=== PATIENT | female | born 1955 | race Caucasian/White ===

== ENCOUNTER → 2022-01-28 | Outpatient (CLI) | payer MEDICARE ==
[~2022-01-28] MED LIST: B12; CALCIUM; LORATADINE10 MG PO; PANTOPRAZOLE SO20 MG PO; TRIAMTERENE-HCTZ1 EA PO; VITAMIN C1000 MG PO; VITAMIN D; Z.0.ALENDRONATE SOD7 PO; Z.0.LEVOTHYROXINE50 PO; Z.0.SIMVASTATIN40 MG PO
== END ==
LOC: CT 14:38
PROVIDERS: ATTEND Specialist
DX: S42.221A 2-part displaced fracture of surgical neck of right humerus, initial encounter for closed fracture (principal)

== ENCOUNTER 2022-01-31 07:06 | Inpatient (IN) | payer MEDICARE, OTHER ==
[2022-01-30 11:51] LABS: BASOPHILS % 0.3 % (0.0-1.0); EOSINOPHILS % 0.3 % (0.0-6.0); HEMATOCRIT 35.1 % (34.2-44.1); HEMOGLOBIN 10.8 g/dL (12.0-16.0); LYMPHOCYTES # (AUTO) 0.7 (1.0-3.2); LYMPHOCYTES % 7.2 % (18.0-39.1); MEAN CORPUSCULAR HEMOGLOBIN 28.6 pg (28-32); MEAN CORPUSCULAR HGB CONC 30.8 g/dL (31-35); MEAN CORPUSCULAR VOLUME 93.1 fL (81-99); MONOCYTES # (AUTO) 0.8 (0.2-0.8); MONOCYTES % 8.7 % (4.4-11.3); NEUTROPHILS # (AUTO) 7.6 (2.1-6.9); PLATELET COUNT 521 x10e3/uL (140-360); RED BLOOD COUNT 3.77 x10e6/uL (3.6-5.1); RED CELL DISTRIBUTION WIDTH 13.6 % (11.7-14.4)
[2022-01-30 12:07] LABS: ANION GAP 17.1 mmol/L (8-16); CALCIUM 8.9 mg/dL (8.4-10.2); CREATININE, SERUM 0.8 mg/dL (0.57-1.11); POTASSIUM 4.1 mmol/L (3.5-5.1)
[~2022-01-31] VITALS: Ht 137.2 cm; Wt 36.0 kg
[~2022-01-31 07:06] MED LIST changes: +CLINDAMYCIN PHOS 900MG/ 50ML 50 ML IV ONE
[2022-01-31] MEDS ORDERED: BUPIVACAINE 0.25% 30ML SDV ONE (08:14)
[2022-01-31 11:34] LABS: HEMATOCRIT 26.5 % (34.2-44.1); HEMOGLOBIN 8.6 g/dL (12.0-16.0)
[2022-01-31] MEDS ORDERED: DEXAMETHASONE SOD PHOS INJ 4 MG/ML SDV ONE (12:17)
[2022-01-31] MEDS ORDERED: POVIDONE IODINE 0.05% 0.05 % ML PO ONE (12:17)
[2022-01-31] MEDS ORDERED: KETOROLAC TROMETHAMINE 30 MG/ML VIAL ONE (12:17)
[2022-01-31] MEDS ORDERED: LIDOCAINE HCL 2% LOCAL INJ 5 ML SDV VIAL INJ ONE (12:17)
[2022-01-31] MEDS ORDERED: SEVOFLURANE INHAL SOLN 250 ML PEN BTL ONE (12:17)
[2022-01-31] MEDS ORDERED: GLYCOPYRROLATE INJ 0.2 MG/ML VIAL ONE (12:17)
[2022-01-31] MEDS ORDERED: PROPOFOL IV EMULSION 10 MG/ML 20 ML VIAL ONE (12:17)
[2022-01-31] MEDS ORDERED: ROCURONIUM BROMIDE 10 MG/ML 5ML VIAL IV ONE (12:17)
[2022-01-31] MEDS ORDERED: EPHEDRINE SULFATE INJ 50 MG/ML VIAL ONE (12:17)
[2022-01-31] MEDS ORDERED: NEOSTIGMINE 1 MG/ML 10ML VIAL ONE (12:17)
[2022-01-31] MEDS ORDERED: ONDANSETRON HCL INJ 2MG/ML 2ML 2 MG/ML VIAL ONE (12:17)
[2022-01-31] MEDS ORDERED: PHENYLEPHRINE HCL 1% 10 MG/ML VIAL ONE (12:17)
[2022-01-31] MEDS ORDERED: NALOXONE HCL INJ 0.4 MG/ML AMP IV PRN (12:30)
[2022-01-31] MEDS ORDERED: ONDANSETRON HCL INJ 2MG/ML 2ML 2 MG/ML VIAL IV PRN (12:30)
[2022-01-31] MEDS ORDERED: FENTANYL CITRATE/PF 100MCG/2 ML INJ ONE (13:44)
[2022-01-31] MEDS ORDERED: MIDAZOLAM HCL 2 MG/2 ML VIAL ONE (13:44)
[2022-01-31] MEDS: HYDROMORPHONE 0.2MG/ML-SOD CHL 30ML PCA SYRINGE IV PRN ×2 (13:50→19:05)
[2022-01-31] MEDS ORDERED: ROPIVACAINE 0.5% 5 MG/ML 30 ML SDV ONE (15:06)
[2022-01-31 16:02] VITALS: BP 103/65
[2022-01-31 18:48] VITALS: BP 103/65
[2022-01-31 18:54] VITALS: BP 103/65
[2022-01-31] MEDS: CLINDAMYCIN PHOS 900MG/ 50ML 50 ML IV SCH (19:12)
[2022-01-31] MEDS: SODIUM CHLORIDE 0.9% 1000ML 1,000 ML IV SCH (19:12)
[2022-01-31] MEDS: ACETAMINOPHEN 1000 MG/100 ML IV SCH ×2 (19:13→20:53)
[2022-01-31 20:00] VITALS: BP 92/61
[2022-01-31 21:00] VITALS: BP 92/61
[2022-02-01] MEDS: CLINDAMYCIN PHOS 900MG/ 50ML 50 ML IV SCH ×3 (00:24→16:05)
[2022-02-01] MEDS: ACETAMINOPHEN 1000 MG/100 ML IV SCH ×3 (01:00→16:00)
[2022-02-01 01:17] VITALS: BP 103/58
[2022-02-01 05:24] VITALS: BP 86/58
[2022-02-01 06:50] LABS: HEMATOCRIT 22.3 % (34.2-44.1); HEMOGLOBIN 7.2 g/dL (12.0-16.0)
[2022-02-01 07:50] VITALS: BP 91/53
[2022-02-01 08:26] VITALS: BP 91/53
[2022-02-01] MEDS ORDERED: SODIUM CHLORIDE 0.9% 250ML 250 ML IV ONE (11:15)
[2022-02-01] MEDS: SODIUM CHLORIDE 0.9% 1000ML 1,000 ML IV SCH ×2 (11:18→21:39)
[2022-02-01 11:34] VITALS: BP 92/60
[2022-02-01] MEDS ORDERED: DOCUSATE SODIUM 100 MG CAP PO PRN (17:45)
[2022-02-01] MEDS ORDERED: ACETAMINOPHEN 325 MG TAB PO PRN (17:45)
[2022-02-01 20:00] VITALS: BP 115/59
[2022-02-01] MEDS: OYST-CAL-D 500MG TABLET PO SCH (21:35)
[2022-02-02] VITALS (7 sets, daily range): BP systolic 101–154; BP diastolic 57–75
[2022-02-02] MEDS: CLINDAMYCIN PHOS 900MG/ 50ML 50 ML IV SCH ×4 (00:04→23:28)
[2022-02-02] MEDS: LEVOTHYROXINE SODIUM 50 MCG TAB PO SCH (05:33)
[2022-02-02 06:12] LABS: BASOPHILS % 0.2 % (0.0-1.0); HEMATOCRIT 28.9 % (34.2-44.1); HEMOGLOBIN 9.5 g/dL (12.0-16.0); LYMPHOCYTES # (AUTO) 0.7 (1.0-3.2); LYMPHOCYTES % 8.2 % (18.0-39.1); MEAN CORPUSCULAR HEMOGLOBIN 29.6 pg (28-32); MEAN CORPUSCULAR HGB CONC 32.9 g/dL (31-35); MONOCYTES # (AUTO) 0.5 (0.2-0.8); MONOCYTES % 5.5 % (4.4-11.3); NEUTROPHILS # (AUTO) 7.7 (2.1-6.9); NEUTROPHILS % 85.7 % (38.7-80.0); PLATELET COUNT 366 x10e3/uL (140-360); RED BLOOD COUNT 3.21 x10e6/uL (3.6-5.1); RED CELL DISTRIBUTION WIDTH 14.2 % (11.7-14.4)
[2022-02-02] MEDS: SIMVASTATIN 40 MG TAB PO SCH (09:38)
[2022-02-02] MEDS: OYST-CAL-D 500MG TABLET PO SCH ×3 (09:38→20:12)
[2022-02-02] MEDS: LORATADINE 10 MG TAB PO SCH (09:39)
[2022-02-02] MEDS: SODIUM CHLORIDE 0.9% 1000ML 1,000 ML IV SCH ×2 (09:40→20:12)
[2022-02-02] MEDS ORDERED: ENOXAPARIN SOD INJ 40 MG/0.4 ML SYR SC SCH (17:00)
[2022-02-03] VITALS (8 sets, daily range): BP systolic 83–129; BP diastolic 60–84
[2022-02-03] MEDS: LEVOTHYROXINE SODIUM 50 MCG TAB PO SCH (05:30)
[2022-02-03 07:16] LABS: HEMATOCRIT 31.4 % (34.2-44.1); HEMOGLOBIN 10.5 g/dL (12.0-16.0)
[2022-02-03 07:39] LABS: ANION GAP 13.9 mmol/L (8-16); CALCIUM 8.2 mg/dL (8.4-10.2); CREATININE, SERUM 0.62 mg/dL (0.57-1.11); POTASSIUM 3.9 mmol/L (3.5-5.1)
[2022-02-03] MEDS: OYST-CAL-D 500MG TABLET PO SCH ×3 (10:09→21:11)
[2022-02-03] MEDS: LORATADINE 10 MG TAB PO SCH (10:09)
[2022-02-03] MEDS: CLINDAMYCIN PHOS 900MG/ 50ML 50 ML IV SCH ×3 (10:09→21:11)
[2022-02-03] MEDS: SIMVASTATIN 40 MG TAB PO SCH (10:09)
[2022-02-03] MEDS: SODIUM CHLORIDE 0.9% 1000ML 1,000 ML IV SCH ×2 (10:40→17:03)
[2022-02-04 01:19] VITALS: BP 92/76
[2022-02-04 04:00] VITALS: BP 117/72
[2022-02-04] MEDS: LEVOTHYROXINE SODIUM 50 MCG TAB PO SCH (05:20)
[2022-02-04] MEDS: CLINDAMYCIN PHOS 900MG/ 50ML 50 ML IV SCH ×2 (08:12→16:13)
[2022-02-04] MEDS: LORATADINE 10 MG TAB PO SCH (08:12)
[2022-02-04] MEDS: OYST-CAL-D 500MG TABLET PO SCH ×2 (08:12→14:35)
[2022-02-04] MEDS: SIMVASTATIN 40 MG TAB PO SCH (08:12)
[2022-02-04 08:45] VITALS: BP 117/72
[2022-02-04 08:58] VITALS: BP 102/69
[2022-02-04] MEDS: SODIUM CHLORIDE 0.9% 1000ML 1,000 ML IV SCH (11:05)
[2022-02-04 11:47] VITALS: BP 91/70
[2022-02-04] MEDS ORDERED: HYDROCODONE/APAP 5MG-325MG TAB PO PRN ×2 (13:30)
[2022-02-04] MEDS ORDERED: ONDANSETRON HCL 4 MG ORAL DISINTEGRATING TAB PO PRN (14:30)
[2022-02-04] MEDS ORDERED: COLLAGENASE 5 GM TUBE TP SCH (15:30)
[2022-02-04 16:02] VITALS: BP 115/78
== END 2022-02-04 17:18 | DRG 493 ==
LOC: OR 07:06 → PACU V 12:53 → MED/SURG2 15:43 → OBSVTOIN 02-01 11:15
PROVIDERS: ADMIT Specialist; ATTEND Specialist
PROC: 0PUF0KZ Supplement Right Humeral Shaft with Nonautologous Tissue Substitute, Open Approach (ICD-10-PCS; 2022-01-31)
PROC: 0PSF04Z Reposition Right Humeral Shaft with Internal Fixation Device, Open Approach (ICD-10-PCS; principal; 2022-01-31 08:45)
PROC: 30233N1 Transfusion of Nonautologous Red Blood Cells into Peripheral Vein, Percutaneous Approach (ICD-10-PCS; 2022-02-01)
DX: S42.231A 3-part fracture of surgical neck of right humerus, initial encounter for closed fracture (principal); D62 Acute posthemorrhagic anemia; Z68.1 Body mass index [BMI] 19.9 or less, adult; E03.9 Hypothyroidism, unspecified; E78.5 Hyperlipidemia, unspecified; E78.00 Pure hypercholesterolemia, unspecified; R33.8 Other retention of urine; R73.03 Prediabetes; W18.30XA Fall on same level, unspecified, initial encounter; Y92.009 Unspecified place in unspecified non-institutional (private) residence as the place of occurrence of the external cause; Z88.1 Allergy status to other antibiotic agents; Z88.0 Allergy status to penicillin; Z88.2 Allergy status to sulfonamides; Z88.8 Allergy status to other drugs, medicaments and biological substances; Z20.822 Contact with and (suspected) exposure to COVID-19
CPT/HCPCS: 0223U; 36415; 71046; 76000; 80048; 85014; 85018; 85025; 86850; 86900; 86920; 93005; 94799; 97139; 99251; C1713; C1762; G0378; J1100; J1885; J2001; J2250; J2370; J2405; J2710; J2795; J3010; J7030; P9016

== ENCOUNTER → 2022-03-26 | Outpatient (CLI) | payer MEDICARE, OTHER ==
[~2022-03-26] MED LIST changes: -CLINDAMYCIN PHOS 900MG/ 50ML 50 ML IV ONE; +HYDROCHLOROTHIA25 MG PO
[2022-03-26 12:25] LABS: BASOPHILS # (AUTO) 0.1 (0.0-0.1); BASOPHILS % 0.8 % (0.0-1.0); EOSINOPHILS # (AUTO) 0.1 (0.0-0.4); EOSINOPHILS % 0.9 % (0.0-6.0); HEMATOCRIT 35.5 % (34.2-44.1); HEMOGLOBIN 10.9 g/dL (12.0-16.0); LYMPHOCYTES # (AUTO) 1.1 (1.0-3.2); LYMPHOCYTES % 17.6 % (18.0-39.1); MEAN CORPUSCULAR HEMOGLOBIN 28.3 pg (28-32); MEAN CORPUSCULAR HGB CONC 30.7 g/dL (31-35); MEAN CORPUSCULAR VOLUME 92.2 fL (81-99); MONOCYTES # (AUTO) 0.5 (0.2-0.8); MONOCYTES % 8.3 % (4.4-11.3); NEUTROPHILS # (AUTO) 4.7 (2.1-6.9); NEUTROPHILS % 72.1 % (38.7-80.0); PLATELET COUNT 451 x10e3/uL (140-360); RED BLOOD COUNT 3.85 x10e6/uL (3.6-5.1); RED CELL DISTRIBUTION WIDTH 13.8 % (11.7-14.4)
[2022-03-26 12:42] LABS: ANION GAP 17.4 mmol/L (8-16); BLOOD UREA NITROGEN 13 mg/dL (7-26); BUN/CREATININE RATIO 21 (6-25); CALCIUM 9.6 mg/dL (8.4-10.2); CARBON DIOXIDE 27 mmol/L (22-29); CHLORIDE 99 mmol/L (98-107); CREATININE, SERUM 0.62 mg/dL (0.57-1.11); GLUCOSE 96 mg/dL (74-118); POTASSIUM 4.4 mmol/L (3.5-5.1); SODIUM 139 mmol/L (136-145)
== END | disposition home or self-care (01) ==
LOC: RAD 07:30 → EDSTATUS 04-03 09:30
PROVIDERS: ATTEND Specialist
DX: L08.9 Local infection of the skin and subcutaneous tissue, unspecified (principal); T84.9XXA Unspecified complication of internal orthopedic prosthetic device, implant and graft, initial encounter; E78.00 Pure hypercholesterolemia, unspecified; Y83.9 Surgical procedure, unspecified as the cause of abnormal reaction of the patient, or of later complication, without mention of misadventure at the time of the procedure; Z53.9 Procedure and treatment not carried out, unspecified reason; Z88.0 Allergy status to penicillin; Z88.2 Allergy status to sulfonamides; Z88.1 Allergy status to other antibiotic agents; Z91.041 Radiographic dye allergy status
CPT/HCPCS: 0223U; 36415; 80048; 85025

== ENCOUNTER 2022-04-02 13:46 | Inpatient (IN) | payer MEDICARE, OTHER ==
[~2022-04-02] VITALS: Ht 137.2 cm; Wt 35.8 kg
[2022-04-02] MEDS ORDERED: ONDANSETRON HCL INJ 2MG/ML 2ML 2 MG/ML VIAL IV PRN (14:45)
[2022-04-02 14:50] LABS: BASOPHILS # (AUTO) 0.1 (0.0-0.1); BASOPHILS % 0.6 % (0.0-1.0); EOSINOPHILS # (AUTO) 0.1 (0.0-0.4); EOSINOPHILS % 0.6 % (0.0-6.0); HEMATOCRIT 37.7 % (34.2-44.1); LYMPHOCYTES # (AUTO) 1.2 (1.0-3.2); LYMPHOCYTES % 13.8 % (18.0-39.1); MEAN CORPUSCULAR HEMOGLOBIN 29.1 pg (28-32); MEAN CORPUSCULAR HGB CONC 31.8 g/dL (31-35); MEAN CORPUSCULAR VOLUME 91.3 fL (81-99); MONOCYTES # (AUTO) 0.5 (0.2-0.8); MONOCYTES % 6.4 % (4.4-11.3); NEUTROPHILS # (AUTO) 6.6 (2.1-6.9); NEUTROPHILS % 78.4 % (38.7-80.0); PLATELET COUNT 472 x10e3/uL (140-360); RED BLOOD COUNT 4.13 x10e6/uL (3.6-5.1); RED CELL DISTRIBUTION WIDTH 13.3 % (11.7-14.4)
[2022-04-02 15:15] LABS: ALANINE AMINOTRANSFERASE 47 IU/L (0-55); ALBUMIN 3.8 g/dL (3.5-5.0); ALKALINE PHOSPHATASE 429 IU/L (40-150); ANION GAP 17.2 mmol/L (8-16); BLOOD UREA NITROGEN 12 mg/dL (7-26); BUN/CREATININE RATIO 17 (6-25); CARBON DIOXIDE 27 mmol/L (22-29); CHLORIDE 97 mmol/L (98-107); GLUCOSE 97 mg/dL (74-118); POTASSIUM 4.2 mmol/L (3.5-5.1); SODIUM 137 mmol/L (136-145)
[2022-04-02 17:10] VITALS: BP 109/75
[2022-04-02] MEDS ORDERED: CLINDAMYCIN PHOS 900MG/ 50ML 50 ML IV ONE (17:30)
[2022-04-02 17:40] VITALS: BP 109/75
[2022-04-02 20:00] VITALS: BP 82/53
[2022-04-02 21:00] VITALS: BP 82/53
[2022-04-02] MEDS: Vancomycin IV 500 MG in SODIUM CHLORIDE 0.9% 100 ML IV SCH (21:06)
[2022-04-02 22:38] VITALS: BP 90/58
[2022-04-03] VITALS (9 sets, daily range): BP systolic 84–102; BP diastolic 56–65
[2022-04-03] MEDS ORDERED: Vancomycin IV 500 MG ONE (09:11)
[2022-04-03] MEDS ORDERED: SODIUM CHLORIDE 0.9% 100 ML ONE (09:11)
[2022-04-03] MEDS ORDERED: SUGAMMADEX SODIUM 200 MG/2 ML VIAL IV ONE (11:00)
[2022-04-03] MEDS ORDERED: HYDROMORPHONE 0.2MG/ML-SOD CHL 30ML PCA SYRINGE IV PRN (11:15)
[2022-04-03] MEDS ORDERED: SODIUM CHLORIDE 0.9% 1000ML 1,000 ML IV SCH ×3 (11:15)
[2022-04-03] MEDS ORDERED: ONDANSETRON HCL INJ 2MG/ML 2ML 2 MG/ML VIAL IV PRN (11:15)
[2022-04-03] MEDS ORDERED: NALOXONE HCL INJ 0.4 MG/ML AMP IV PRN (11:15)
[2022-04-03] MEDS ORDERED: ONDANSETRON HCL INJ 2MG/ML 2ML 2 MG/ML VIAL ONE (12:06)
[2022-04-03] MEDS ORDERED: POVIDONE IODINE 0.05% 0.05 % ML PO ONE (12:06)
[2022-04-03] MEDS ORDERED: SEVOFLURANE INHAL SOLN 250 ML PEN BTL ONE (12:06)
[2022-04-03] MEDS ORDERED: LIDOCAINE HCL 2% LOCAL INJ 5 ML SDV VIAL INJ ONE (12:06)
[2022-04-03] MEDS ORDERED: ROCURONIUM BROMIDE 10 MG/ML 5ML VIAL IV ONE (12:06)
[2022-04-03] MEDS ORDERED: PROPOFOL IV EMULSION 10 MG/ML 20 ML VIAL ONE (12:06)
[2022-04-03] MEDS ORDERED: FENTANYL CITRATE/PF 100MCG/2 ML INJ ONE ×2 (12:10→13:44)
[2022-04-03] MEDS: Vancomycin IV 500 MG in SODIUM CHLORIDE 0.9% 100 ML IV SCH ×2 (12:34→21:48)
[2022-04-03] MEDS ORDERED: MIDAZOLAM HCL 2 MG/2 ML VIAL ONE (13:44)
[2022-04-03] MEDS ORDERED: ACETAMINOPHEN 1000 MG/100 ML IV PRN (14:00)
[2022-04-03] MEDS: HYDROCODONE/APAP 5MG-325MG TAB PO PRN (14:04)
[2022-04-03] MEDS: SIMVASTATIN 40 MG TAB PO SCH (20:26)
[2022-04-04] VITALS (8 sets, daily range): BP systolic 90–126; BP diastolic 51–68
[2022-04-04] MEDS: LEVOTHYROXINE SODIUM 50 MCG TAB PO SCH (05:17)
[2022-04-04 06:21] LABS: ALBUMIN/GLOBULIN RATIO 0.8 (0.8-2.0); ANION GAP 12.3 mmol/L (8-16); CALCIUM 7.2 mg/dL (8.4-10.2); CREATININE, SERUM 0.58 mg/dL (0.57-1.11); POTASSIUM 3.3 mmol/L (3.5-5.1)
[2022-04-04 06:35] LABS: BASOPHILS % 0.5 % (0.0-1.0); EOSINOPHILS % 0.4 % (0.0-6.0); HEMATOCRIT 26.6 % (34.2-44.1); HEMOGLOBIN 8.2 g/dL (12.0-16.0); LYMPHOCYTES % 13.8 % (18.0-39.1); MEAN CORPUSCULAR HEMOGLOBIN 28.9 pg (28-32); MEAN CORPUSCULAR HGB CONC 30.8 g/dL (31-35); MEAN CORPUSCULAR VOLUME 93.7 fL (81-99); MONOCYTES # (AUTO) 0.7 (0.2-0.8); MONOCYTES % 9.9 % (4.4-11.3); NEUTROPHILS # (AUTO) 5.5 (2.1-6.9); NEUTROPHILS % 75.1 % (38.7-80.0); PLATELET COUNT 322 x10e3/uL (140-360); RED BLOOD COUNT 2.84 x10e6/uL (3.6-5.1); RED CELL DISTRIBUTION WIDTH 13.6 % (11.7-14.4)
[2022-04-04] MEDS: HYDROCODONE/APAP 5MG-325MG TAB PO PRN (08:36)
[2022-04-04] MEDS: HYDROCHLOROTHIAZIDE 25 MG TAB PO SCH (08:36)
[2022-04-04] MEDS: LORATADINE 10 MG TAB PO SCH (08:36)
[2022-04-04] MEDS ORDERED: POTASSIUM CHLORIDE 20 MEQ TAB CR PO ONE (09:15)
[2022-04-04] MEDS ORDERED: SODIUM CHLORIDE 0.9% IV SCH ×2 (10:15→21:00)
[2022-04-04] MEDS ORDERED: VANCOMYCIN IV SCH ×2 (10:15→21:00)
[2022-04-04] MEDS: Vancomycin IV 500 MG in SODIUM CHLORIDE 0.9% 100 ML IV SCH ×2 (11:31→22:25)
[2022-04-04] MEDS: CEFTRIAXONE 2 GM in SODIUM CHLORIDE 0.9% 100 ML IV SCH (16:52)
[2022-04-04] MEDS: SIMVASTATIN 40 MG TAB PO SCH (20:55)
[2022-04-05] VITALS (8 sets, daily range): BP systolic 92–106; BP diastolic 53–64
[2022-04-05] MEDS: LEVOTHYROXINE SODIUM 50 MCG TAB PO SCH (05:22)
[2022-04-05 06:17] LABS: HEMATOCRIT 25.4 % (34.2-44.1); HEMOGLOBIN 8.2 g/dL (12.0-16.0)
[2022-04-05] MEDS: LORATADINE 10 MG TAB PO SCH (09:22)
[2022-04-05] MEDS: HYDROCHLOROTHIAZIDE 25 MG TAB PO SCH (09:22)
[2022-04-05] MEDS: Vancomycin IV 500 MG in SODIUM CHLORIDE 0.9% 100 ML IV SCH ×2 (11:00→20:47)
[2022-04-05] MEDS: CEFTRIAXONE 2 GM in SODIUM CHLORIDE 0.9% 100 ML IV SCH (17:21)
[2022-04-05] MEDS: HYDROCODONE/APAP 5MG-325MG TAB PO PRN (20:46)
[2022-04-05] MEDS: SIMVASTATIN 40 MG TAB PO SCH (20:46)
[2022-04-06] VITALS (8 sets, daily range): BP systolic 81–108; BP diastolic 47–67
[2022-04-06] MEDS: LEVOTHYROXINE SODIUM 50 MCG TAB PO SCH (05:53)
[2022-04-06] MEDS: HYDROCHLOROTHIAZIDE 25 MG TAB PO SCH (09:00)
[2022-04-06] MEDS: HYDROCODONE/APAP 5MG-325MG TAB PO PRN (09:29)
[2022-04-06] MEDS: LORATADINE 10 MG TAB PO SCH (09:29)
[2022-04-06] MEDS: Vancomycin IV 500 MG in SODIUM CHLORIDE 0.9% 100 ML IV SCH ×2 (12:12→22:56)
[2022-04-06] MEDS: CEFTRIAXONE 2 GM in SODIUM CHLORIDE 0.9% 100 ML IV SCH (17:06)
[2022-04-06] MEDS: SIMVASTATIN 40 MG TAB PO SCH (20:27)
[2022-04-06] MEDS: GUAIFENESIN 200 MG/10 ML UDC PO PRN (22:56)
[2022-04-07] VITALS (8 sets, daily range): BP systolic 89–95; BP diastolic 55–67
[2022-04-07] MEDS: LEVOTHYROXINE SODIUM 50 MCG TAB PO SCH (05:19)
[2022-04-07] MEDS: LORATADINE 10 MG TAB PO SCH (08:39)
[2022-04-07] MEDS: HYDROCHLOROTHIAZIDE 25 MG TAB PO SCH (08:40)
[2022-04-07] MEDS: Vancomycin IV 500 MG in SODIUM CHLORIDE 0.9% 100 ML IV SCH ×2 (10:47→23:55)
[2022-04-07] MEDS: CEFTRIAXONE 2 GM in SODIUM CHLORIDE 0.9% 100 ML IV SCH (16:03)
[2022-04-07] MEDS: SIMVASTATIN 40 MG TAB PO SCH (21:05)
[2022-04-07] MEDS: HYDROCODONE/APAP 5MG-325MG TAB PO PRN (21:06)
[2022-04-07] MEDS: GUAIFENESIN 200 MG/10 ML UDC PO PRN (21:06)
[2022-04-08] VITALS (9 sets, daily range): BP systolic 92–136; BP diastolic 56–67
[2022-04-08] MEDS: LEVOTHYROXINE SODIUM 50 MCG TAB PO SCH (05:49)
[2022-04-08] MEDS: LORATADINE 10 MG TAB PO SCH (09:34)
[2022-04-08] MEDS: HYDROCHLOROTHIAZIDE 25 MG TAB PO SCH (09:35)
[2022-04-08] MEDS: Vancomycin IV 500 MG in SODIUM CHLORIDE 0.9% 100 ML IV SCH (12:11)
[2022-04-08] MEDS ORDERED: ONDANSETRON HCL 4 MG ORAL DISINTEGRATING TAB PO PRN (14:00)
[2022-04-08] MEDS: CEFTRIAXONE 2 GM in SODIUM CHLORIDE 0.9% 100 ML IV SCH (17:12)
[2022-04-08] MEDS: SIMVASTATIN 40 MG TAB PO SCH (21:39)
[2022-04-09] VITALS (8 sets, daily range): BP systolic 95–112; BP diastolic 49–76
[2022-04-09] MEDS: Vancomycin IV 500 MG in SODIUM CHLORIDE 0.9% 100 ML IV SCH ×3 (01:05→23:13)
[2022-04-09] MEDS: LEVOTHYROXINE SODIUM 50 MCG TAB PO SCH (05:55)
[2022-04-09 09:17] LABS: MAGNESIUM 1.9 MG/DL (1.3-2.1); PHOSPHORUS 3.8 MG/DL (2.3-4.7)
[2022-04-09] MEDS: LORATADINE 10 MG TAB PO SCH (10:48)
[2022-04-09] MEDS: HYDROCHLOROTHIAZIDE 25 MG TAB PO SCH (10:48)
[2022-04-09] MEDS: CEFTRIAXONE 2 GM in SODIUM CHLORIDE 0.9% 100 ML IV SCH (17:19)
[2022-04-09] MEDS: SIMVASTATIN 40 MG TAB PO SCH (21:32)
[2022-04-10] VITALS (7 sets, daily range): BP systolic 90–172; BP diastolic 49–66
[2022-04-10] MEDS: LEVOTHYROXINE SODIUM 50 MCG TAB PO SCH (05:57)
[2022-04-10] MEDS: LORATADINE 10 MG TAB PO SCH (09:22)
[2022-04-10] MEDS: HYDROCHLOROTHIAZIDE 25 MG TAB PO SCH (09:22)
[2022-04-10] MEDS: Vancomycin IV 500 MG in SODIUM CHLORIDE 0.9% 100 ML IV SCH ×2 (11:04→22:32)
[2022-04-10 11:54] LABS: PHOSPHORUS 4.3 MG/DL (2.3-4.7)
[2022-04-10 12:13] LABS: MAGNESIUM 2.1 MG/DL (1.3-2.1)
[2022-04-10] MEDS: CEFTRIAXONE 2 GM in SODIUM CHLORIDE 0.9% 100 ML IV SCH (16:38)
[2022-04-10] MEDS ORDERED: SODIUM CHLORIDE 0.9% 500ML 500 ML IV ONE (17:00)
[2022-04-10] MEDS: METOPROLOL TARTRATE 25 MG TAB PO SCH (21:00)
[2022-04-10] MEDS: SIMVASTATIN 40 MG TAB PO SCH (21:32)
[2022-04-11] VITALS (8 sets, daily range): BP systolic 90–112; BP diastolic 47–60
[2022-04-11] MEDS: LEVOTHYROXINE SODIUM 50 MCG TAB PO SCH (05:57)
[2022-04-11] MEDS ORDERED: SODIUM CHLORIDE 0.9% 500ML 500 ML ONE (07:39)
[2022-04-11] MEDS: METOPROLOL TARTRATE 25 MG TAB PO SCH ×2 (09:00→21:00)
[2022-04-11] MEDS: HYDROCHLOROTHIAZIDE 25 MG TAB PO SCH (09:03)
[2022-04-11] MEDS: LORATADINE 10 MG TAB PO SCH (09:03)
[2022-04-11] MEDS: Vancomycin IV 500 MG in SODIUM CHLORIDE 0.9% 100 ML IV SCH (09:06)
[2022-04-11] MEDS: CEFTRIAXONE 2 GM in SODIUM CHLORIDE 0.9% 100 ML IV SCH (16:59)
[2022-04-11] MEDS: SIMVASTATIN 40 MG TAB PO SCH (21:13)
[2022-04-12 00:59] VITALS: BP 117/73
[2022-04-12] MEDS: LEVOTHYROXINE SODIUM 50 MCG TAB PO SCH (05:41)
[2022-04-12 06:19] VITALS: BP 119/66
[2022-04-12 06:38] LABS: BASOPHILS % 0.7 % (0.0-1.0); EOSINOPHILS # (AUTO) 0.2 (0.0-0.4); EOSINOPHILS % 3.7 % (0.0-6.0); HEMATOCRIT 28.5 % (34.2-44.1); HEMOGLOBIN 8.7 g/dL (12.0-16.0); LYMPHOCYTES # (AUTO) 0.8 (1.0-3.2); LYMPHOCYTES % 17.5 % (18.0-39.1); MEAN CORPUSCULAR HEMOGLOBIN 28.3 pg (28-32); MEAN CORPUSCULAR HGB CONC 30.5 g/dL (31-35); MEAN CORPUSCULAR VOLUME 92.8 fL (81-99); MONOCYTES # (AUTO) 0.5 (0.2-0.8); MONOCYTES % 10.3 % (4.4-11.3); NEUTROPHILS # (AUTO) 3.1 (2.1-6.9); NEUTROPHILS % 67.6 % (38.7-80.0); PLATELET COUNT 399 x10e3/uL (140-360); RED BLOOD COUNT 3.07 x10e6/uL (3.6-5.1); RED CELL DISTRIBUTION WIDTH 13.8 % (11.7-14.4)
[2022-04-12 07:17] LABS: ANION GAP 13.6 mmol/L (8-16); CALCIUM 8.6 mg/dL (8.4-10.2); CREATININE, SERUM 0.56 mg/dL (0.57-1.11); POTASSIUM 3.6 mmol/L (3.5-5.1)
[2022-04-12 08:33] VITALS: BP 101/58
[2022-04-12 08:44] VITALS: BP 95/58
[2022-04-12] MEDS: METOPROLOL TARTRATE 25 MG TAB PO SCH (09:00)
[2022-04-12] MEDS ORDERED: SODIUM CHLORIDE 0.9% 100 ML ONE (09:25)
[2022-04-12] MEDS: LORATADINE 10 MG TAB PO SCH (10:06)
[2022-04-12] MEDS: HYDROCHLOROTHIAZIDE 25 MG TAB PO SCH ×2 (10:06→10:10)
[2022-04-12] MEDS: Vancomycin IV 500 MG in SODIUM CHLORIDE 0.9% 100 ML IV SCH (10:07)
[2022-04-12 12:59] VITALS: BP 95/53
[2022-04-12 16:06] VITALS: BP 103/53
== END 2022-04-12 17:10 | DRG 464 ==
LOC: ER 14:13 → ERHOLD 14:33 → MED/SURG3 15:30 → OBSVTOIN 04-03 11:18
PROVIDERS: ADMIT Internal Medicine; ATTEND Internal Medicine
PROC: 0JBD0ZZ Excision of Right Upper Arm Subcutaneous Tissue and Fascia, Open Approach (ICD-10-PCS; 2022-04-03)
PROC: 0RPJ0J6 Removal of Synthetic Substitute from Right Shoulder Joint, Humeral Surface, Open Approach (ICD-10-PCS; 2022-04-03)
PROC: 02HV33Z Insertion of Infusion Device into Superior Vena Cava, Percutaneous Approach (ICD-10-PCS; principal; 2022-04-03 09:25)
DX: T84.59XA Infection and inflammatory reaction due to other internal joint prosthesis, initial encounter (principal); T81.42XA Infection following a procedure, deep incisional surgical site, initial encounter; Y79.3 Surgical instruments, materials and orthopedic devices (including sutures) associated with adverse incidents; E03.9 Hypothyroidism, unspecified; E78.2 Mixed hyperlipidemia; R73.03 Prediabetes; Z88.0 Allergy status to penicillin; Z88.2 Allergy status to sulfonamides; G89.4 Chronic pain syndrome; M19.91 Primary osteoarthritis, unspecified site; B96.89 Other specified bacterial agents as the cause of diseases classified elsewhere; B95.2 Enterococcus as the cause of diseases classified elsewhere; E87.6 Hypokalemia; M47.9 Spondylosis, unspecified; Z20.822 Contact with and (suspected) exposure to COVID-19
CPT/HCPCS: 0223U; 36415; 36569; 71045; 76000; 80048; 80053; 80202; 83518; 83735; 84100; 84132; 85014; 85018; 85025; 86850; 86900; 87040; 87070; 87071; 87075; 87186; 87205; 93005; 96361; 99284; G0378; J0696; J2001; J2250; J2405; J3010; J3370; J7030; J7040; J7050

== ENCOUNTER 2022-06-06 09:19 | Emergency (ER) | payer MEDICARE, OTHER ==
[~2022-06-06] VITALS: Ht 137.2 cm; Wt 35.8 kg
[2022-06-06] MEDS: TETANUS/DIPHTHERIA TOX ADULT 0.5 ML SYR IM ONE (10:21)
[2022-06-06] MEDS: LIDOCAINE HCL/EPINEPHRINE/PF 10 ML VIAL INJ ONE ×2 (10:26→11:42)
[2022-06-06 12:13] VITALS: BP 98/65
== END 2022-06-06 12:15 | disposition home or self-care (01) ==
LOC: ER 09:22
DX: S01.01XA Laceration without foreign body of scalp, initial encounter (principal); W18.09XA Striking against other object with subsequent fall, initial encounter; Y92.89 Other specified places as the place of occurrence of the external cause; E78.5 Hyperlipidemia, unspecified; K21.9 Gastro-esophageal reflux disease without esophagitis; E03.9 Hypothyroidism, unspecified; M54.9 Dorsalgia, unspecified; G89.29 Other chronic pain
CPT/HCPCS: 70450; 72125; 90714; 99284

== ENCOUNTER → 2022-06-19 | Outpatient (RCR) | payer OTHER | LOC: OT 05-30 11:18 | PROVIDERS: ATTEND Specialist | DX: S42.221D 2-part displaced fracture of surgical neck of right humerus, subsequent encounter for fracture with routine healing (principal) ==

== ENCOUNTER → 2022-08-20 | Outpatient (RCR) | payer MEDICARE | LOC: OT 08-13 10:21 | PROVIDERS: ATTEND Specialist | DX: S42.221D 2-part displaced fracture of surgical neck of right humerus, subsequent encounter for fracture with routine healing (principal) ==

== ENCOUNTER 2022-09-03 10:52 | Outpatient (RCR) | payer MEDICARE | END 2022-09-17 | LOC: OT 10:52 | PROVIDERS: ATTEND Specialist | DX: S42.391A Other fracture of shaft of right humerus, initial encounter for closed fracture (principal) ==

== ENCOUNTER 2024-02-07 08:40 | Emergency (ER) | payer MEDICARE ==
[~2024-02-07] VITALS: Ht 137.2 cm; Wt 44.0 kg
[~2024-02-07 08:40] MED LIST changes: +MACROBID 100 M100 MG PO; +ULTRAM 50MG50 MG PO
[2024-02-07 08:45] VITALS: PULSE 92; RESP 17; TEMP 97.6; O2SAT 100
[2024-02-07] MEDS: ACETAMINOPHEN 325 MG TAB PO ONE (09:58)
== END 2024-02-07 11:39 | disposition home or self-care (01) ==
LOC: ER 08:48
DX: M25.562 Pain in left knee (principal); M25.561 Pain in right knee; I10 Essential (primary) hypertension; E78.5 Hyperlipidemia, unspecified; E03.9 Hypothyroidism, unspecified; K21.9 Gastro-esophageal reflux disease without esophagitis; M54.9 Dorsalgia, unspecified; G89.29 Other chronic pain
CPT/HCPCS: 99284